=== PATIENT | male | born 1995 | race Caucasian/White ===

== ENCOUNTER → 2017-07-01 | Outpatient (CLI) | payer OTHER ==
--- NOTE | 2017-07-01 14:56 | DIAGNOSTIC IMAGING REPORT ---
FUSION CT SINUSES W/O CLINICAL HISTORY: R51 3 month history of right-sided facial pain centered on the maxillary region. COMPARISON STUDY: No previous studies for comparison. FINDINGS: Helical images were acquired in transverse plane with coronal reformatted imaging. A dose modified technique was utilized adhering to the principles of ALARA. There is no evidence of hydrocephalus. No orbital masses are visualized. There is no evidence of acute sinusitis. The mastoid air cells are well aerated. Middle ear cavities appear well aerated. The frontal sinuses are clear. There is minor mucosal thickening involving the base of the right and left maxillary sinus. There is mild mucosal thickening involving several right-sided ethmoid air cells. The left ethmoid complex and frontal sinuses are clear. The sphenoid sinus is clear. The ossicular units are patent bilaterally. There is a left-sided nasal septal spur. The ethmoid notches are unprotected. The olfactory grooves measure 5 mm in depth. The frontoethmoidal recesses are patent. IMPRESSION: 1. No evidence of acute sinusitis 2. Minor mucosal thickening involving the bases of the maxillary sinuses and right ethmoid air cells. 3. Left-sided nasal septal spur Electronically signed by: Manjit Feng M.D. 07/01/2017 2:55 PM Dictated Date/Time: 07/01/2017 2:50 PM
== END | disposition home or self-care (01) ==
LOC: C.CTS 14:21
PROVIDERS: ATTEND Physician Assistant
DX: R51 Headache (principal); J34.89 Other specified disorders of nose and nasal sinuses

== ENCOUNTER → 2017-07-11 | Outpatient (CLI) | payer OTHER ==
[~2017-07-11] MED LIST: GADAVIST IV PRN
--- NOTE | 2017-07-11 18:19 | DIAGNOSTIC IMAGING REPORT ---
CERVICAL SPINE COMBO CLINICAL HISTORY: 22 years-old Male presenting with R20.2 [id number] Left leg weakness, paresthesias throughout the whole body, left leg weakness, fatigue, no pain, no injury, no history of cancer prior surgery. TECHNIQUE: Multisequence, multiplanar MR imaging of the cervical spine was performed before and after the administration of intravenous contrast. IV contrast: 6.5 mL of Gadavist. COMPARISON: None. FINDINGS: Localizer images: Unremarkable. Straightening of normal cervical lordosis likely positional. Vertebral bodies maintain normal height, alignment, and bone marrow signal intensity. Intervertebral disc spaces preserved. No significant degenerative change. No neural foraminal or spinal canal narrowing. No acute fracture or subluxation The spinal cord maintains normal morphology and signal intensity. Craniocervical junction normal. No abnormal enhancements of the spinal cord on postcontrast imaging. Paraspinal soft tissues are normal. No epidural collection. No muscular edema. IMPRESSION: Normal cervical spine. No abnormal enhancement. Electronically signed by: Jayson Og M.D. 07/11/2017 6:18 PM Dictated Date/Time: 07/11/2017 6:15 PM
== END | disposition home or self-care (01) ==
LOC: C.MRI 17:01
PROVIDERS: ATTEND Physician Assistant
DX: R29.898 Other symptoms and signs involving the musculoskeletal system (principal); R53.83 Other fatigue; R20.2 Paresthesia of skin